=== PATIENT | male | born 1970 | race African-American/Black ===

== ENCOUNTER 2022-02-12 13:18 | Inpatient (IN) ==
[2022-02-12 13:56] LABS: ABS Lymphocytes 1.5 10^3/ul (1.0-4.8); ABS Monocytes 0.7 10^3/ul (0-0.8); ABS Neutrophils 9.5 10^3/ul (1.5-7.7); Eosinophil % 0.3 %; Hematocrit 42 % (42-52); Hemoglobin 13.1 g/dL (14.0-18.0); Lymphocyte % 12.5 %; Mean Corpuscular HGB Conc 31 g/dL (31-36); Mean Corpuscular Hemoglobin 25 pg (27-31); Mean Corpuscular Volume 81 fL (80-94); Mean Platelet Volume 8.8 fL (7.4-10.4); Platelet Count 216 10^3/uL (150-450); Red Blood Count 5.22 10^6 /uL (4.18-5.48); Red Cell Distribution Width 18 % (10-15); White Blood Count 11.7 10^3/uL (3.5-10.8)
[2022-02-12 14:06] LABS: INR 1.2 (0.86-1.15)
[2022-02-12 14:28] LABS: Albumin/Globulin Ratio 0.7 (1-3); Calcium 8.7 mg/dL (8.6-10.3); Globulin 4.4 g/dL (2-4); Potassium 4.4 mmol/L (3.5-5.0); Total Bilirubin 0.6 mg/dL (0.2-1.0); Total Protein 7.4 g/dL (6.4-8.9); eGFR CKD-EPI 55.6 (>60)
[2022-02-12] MEDS ORDERED: Morphine 4 MG/ML VIAL (1 ml) IV ONE (14:59)
[2022-02-12] MEDS ORDERED: Lactated Ringers 1000 ml BAG 1,000 ML IV ONE (14:59)
[2022-02-12] MEDS ORDERED: Ondansetron 4 mg VIAL 2 MG/ML 2 ml VIAL IV ONE (14:59)
[2022-02-12 15:24] LABS: High Sensitivity Troponin 1 Hr 3 pg/mL (<20)
[2022-02-12] MEDS ORDERED: Iohexol 350 (CONTRAST) 500 ML MDV IV ONE (15:32)
[2022-02-12] MEDS ORDERED: Lidocaine 1% VIAL 10 MG/ML VIAL INJ ONE ×2 (17:50→17:58)
[2022-02-12] MEDS ORDERED: Midazolam 2 mg/2 ml VIAL 1 mg/ml 2 ml VIAL (2 mg) IV SLOW PU ONE (18:08)
[2022-02-12] MEDS ORDERED: Lidocaine 1% MPF 5 ML VIAL ONE ×2 (18:13→19:00)
[2022-02-12 19:26] LABS: Hepatitis B Surface Antigen Positive (Nonreactive)
[2022-02-12 19:31] LABS: Hepatitis A Ab IgM Negative (Negative)
[2022-02-12 19:32] LABS: Hepatitis B Core IgM Nonreactive (Nonreactive)
[2022-02-12 19:43] LABS: Hepatitis C Antibody Negative (Negative)
[2022-02-12 21:29] LABS: Body Fluid Appearance Cloudy; Body Fluid Mono 7 %; Body Fluid Source Pleural Fluid; Body Fluid Total Cells Counted 200
[2022-02-12 21:35] LABS: Body Fluid WBC 10174 /mcL
[2022-02-12] MEDS ORDERED: cefTRIAXone 1 gm/50 mL D5W 1 GM/50 ML BAG IV SCH (22:00)
[2022-02-12] MEDS: oxyCODONE/Acetamin 5/325 mg TAB PO PRN (22:05)
[2022-02-12] MEDS ORDERED: Azithromycin 500 mg/250 ml NS 500 MG/250 ML BAG IVPB SCH (22:30)
[2022-02-12 22:57] LABS: Urine Appearance Clear; Urine Bacteria Absent (Absent); Urine Bilirubin Negative (Negative); Urine Blood Negative (Negative); Urine Color Yellow; Urine Glucose Negative (Negative); Urine Ketones Negative (Negative); Urine Nitrite Negative (Negative); Urine Protein 1+(30 mg/dL) (Negative); Urine Red Blood Cell Absent (Absent); Urine Urobilinogen Negative (Negative); Urine White Blood Cell Absent (Absent)
[2022-02-12 22:58] LABS: Urine Specific Gravity > 1.060 (1.002-1.030)
[2022-02-13] MEDS: NS 0.9% 1000 ml BAG 1,000 ML IV SCH ×2 (06:10→22:42)
[2022-02-13 07:07] LABS: ABS Monocytes 0.9 10^3/ul (0-0.8); ABS Neutrophils 7.8 10^3/ul (1.5-7.7); Eosinophil % 0.4 %; Hematocrit 38 % (42-52); Hemoglobin 12.1 g/dL (14.0-18.0); Lymphocyte % 10.7 %; Mean Corpuscular HGB Conc 32 g/dL (31-36); Mean Corpuscular Hemoglobin 26 pg (27-31); Mean Corpuscular Volume 80 fL (80-94); Mean Platelet Volume 9.3 fL (7.4-10.4); Platelet Count 182 10^3/uL (150-450); Red Cell Distribution Width 18 % (10-15); White Blood Count 9.8 10^3/uL (3.5-10.8)
[2022-02-13 07:17] LABS: C Reactive Protein 294.87 mg/L (<8.01); HDL Cholesterol 24.1 mg/dL; Potassium 4.6 mmol/L (3.5-5.0); eGFR CKD-EPI 63.6 (>60)
[2022-02-13] MEDS: BICTEGRAV EMTRICIT TENOFOV ALA PO SCH (09:56)
[2022-02-13] MEDS: oxyCODONE/Acetamin 5/325 mg TAB PO PRN (12:20)
[2022-02-13] MEDS ORDERED: Lorazepam PYXIS KEY PRN (13:29)
[2022-02-13] MEDS ORDERED: LORazepam 2 mg VIAL 1 ml IV PUSH ONE (13:30)
[2022-02-13] MEDS ORDERED: Vancomycin per Pharmacy 1 EA NOTE FOLLOW UP SCH (15:00)
[2022-02-13] MEDS ORDERED: Vancomycin 1,250 MG in NS 0.9% 250 ml 250 ML IVPB ONE (15:00)
[2022-02-13 18:40] LABS: Urine Chloride Concentration 52 mmol/L; Urine Sodium Concentration 40 mmol/L
[2022-02-13] MEDS ORDERED: cefTRIAXone 1 gm/50 mL D5W 1 GM/50 ML BAG IV SCH (22:00)
[2022-02-13] MEDS: Azithromycin 500 mg/250 ml NS 500 MG/250 ML BAG IVPB SCH (22:41)
[2022-02-14] MEDS: Vancomycin 750 MG in NS 0.9% 250 ML IVPB SCH ×2 (03:13→15:01)
[2022-02-14 08:57] LABS: Magnesium 1.9 mg/dL (1.9-2.7); Potassium 4.3 mmol/L (3.5-5.0); eGFR CKD-EPI 78.7 (>60)
[2022-02-14] MEDS: NS 0.9% 1000 ml BAG 1,000 ML IV SCH ×2 (09:05→21:32)
[2022-02-14] MEDS: BICTEGRAV EMTRICIT TENOFOV ALA PO SCH (09:26)
[2022-02-14 11:40] LABS: Hepatitis B Surface Ab Not Immune (Immune)
[2022-02-14] MEDS: oxyCODONE/Acetamin 5/325 mg TAB PO PRN (21:30)
[2022-02-14] MEDS: cefTRIAXone 2 gm/50 mL D5W 2 GM/50 ML BAG IV SCH (21:41)
[2022-02-14] MEDS: Azithromycin 500 mg/250 ml NS 500 MG/250 ML BAG IVPB SCH (22:20)
[2022-02-15] MEDS: Vancomycin 750 MG in NS 0.9% 250 ML IVPB SCH (03:00)
[2022-02-15 06:23] LABS: ABS Eosinophils 0.2 10^3/ul (0-0.6); ABS Monocytes 0.7 10^3/ul (0-0.8); ABS Neutrophils 2.5 10^3/ul (1.5-7.7); Eosinophil % 4.6 %; Hematocrit 37 % (42-52); Hemoglobin 11.5 g/dL (14.0-18.0); Lymphocyte % 22.3 %; Mean Corpuscular HGB Conc 31 g/dL (31-36); Mean Corpuscular Hemoglobin 25 pg (27-31); Mean Corpuscular Volume 79 fL (80-94); Mean Platelet Volume 8.6 fL (7.4-10.4); Platelet Count 259 10^3/uL (150-450); Red Blood Count 4.66 10^6 /uL (4.18-5.48); Red Cell Distribution Width 18 % (10-15); White Blood Count 4.4 10^3/uL (3.5-10.8)
[2022-02-15 06:53] LABS: Calcium 8.1 mg/dL (8.6-10.3); Magnesium 1.9 mg/dL (1.9-2.7); Potassium 4.4 mmol/L (3.5-5.0); eGFR CKD-EPI 83.1 (>60)
[2022-02-15] MEDS ORDERED: Magnesium Sulfate IV 1GM/100ML 1 GM/100 ML BAG IV ONE (07:02)
[2022-02-15] MEDS: BICTEGRAV EMTRICIT TENOFOV ALA PO SCH (10:01)
[2022-02-15 10:53] LABS: Lactate Dehydrogenase, BF 476 U/L
[2022-02-15 12:48] LABS: Glucose, BF 39 mg/dL
[2022-02-15 12:54] LABS: Fluid Type, Protein, Total PLEURAL; Total Protein, BF 4.5 g/dL
[2022-02-15 14:15] LABS: Fluid Type: PLEURAL; Triglycerides (BF) 1721 mg/dL
[2022-02-15] MEDS ORDERED: Vancomycin Trough Check NOTE FOLLOW UP ONE (14:30)
[2022-02-15] MEDS: cefTRIAXone 2 gm/50 mL D5W 2 GM/50 ML BAG IV SCH (22:00)
[2022-02-15] MEDS: Azithromycin 500 mg/250 ml NS 500 MG/250 ML BAG IVPB SCH (22:42)
[2022-02-16] MEDS: NS 0.9% 1000 ml BAG 1,000 ML IV SCH ×3 (00:53→22:56)
[2022-02-16 06:42] LABS: ABS Eosinophils 0.2 10^3/ul (0-0.6); ABS Lymphocytes 1.1 10^3/ul (1.0-4.8); ABS Monocytes 0.7 10^3/ul (0-0.8); Eosinophil % 4.7 %; Hematocrit 36 % (42-52); Hemoglobin 11.6 g/dL (14.0-18.0); Lymphocyte % 26.7 %; Mean Corpuscular HGB Conc 32 g/dL (31-36); Mean Corpuscular Hemoglobin 26 pg (27-31); Mean Corpuscular Volume 79 fL (80-94); Nucleated Red Blood Cells % 0.1; Platelet Count 296 10^3/uL (150-450); Red Blood Count 4.53 10^6 /uL (4.18-5.48); Red Cell Distribution Width 17 % (10-15)
[2022-02-16 06:59] LABS: Calcium 8.2 mg/dL (8.6-10.3); Magnesium 1.8 mg/dL (1.9-2.7); Potassium 4.3 mmol/L (3.5-5.0); eGFR CKD-EPI 96.9 (>60)
[2022-02-16] MEDS ORDERED: Magnesium Sulfate 2 gm BAG 2 GM/50 ML BAG IVPB ONE (07:03)
[2022-02-16] MEDS: BICTEGRAV EMTRICIT TENOFOV ALA PO SCH (07:59)
[2022-02-16] MEDS: cefTRIAXone 2 GM ADDV.VIAL 2 GM in NS 0.9% 100 ml BAG 100 ML IVPB SCH (21:10)
[2022-02-17] MEDS: oxyCODONE/Acetamin 5/325 mg TAB PO PRN (04:47)
[2022-02-17 05:46] LABS: Hematocrit 36 % (42-52); Hemoglobin 11.3 g/dL (14.0-18.0); Mean Corpuscular HGB Conc 32 g/dL (31-36); Mean Corpuscular Hemoglobin 25 pg (27-31); Mean Corpuscular Volume 78 fL (80-94); Mean Platelet Volume 8.3 fL (7.4-10.4); Platelet Count 350 10^3/uL (150-450); Red Blood Count 4.55 10^6 /uL (4.18-5.48); Red Cell Distribution Width 18 % (10-15); White Blood Count 5.2 10^3/uL (3.5-10.8)
[2022-02-17] MEDS ORDERED: Buffered Lidocaine 1% SYRIN 1 ml INTRADERM ONE (06:00)
[2022-02-17] MEDS ORDERED: Lactated Ringers 1000 ml BAG 1,000 ML IV SCH (06:00)
[2022-02-17 06:06] LABS: Calcium 8.3 mg/dL (8.6-10.3); Magnesium 1.9 mg/dL (1.9-2.7); Potassium 4.4 mmol/L (3.5-5.0)
[2022-02-17] MEDS ORDERED: Magnesium Sulfate IV 1GM/100ML 1 GM/100 ML BAG IV ONE (06:28)
[2022-02-17] MEDS: NS 0.9% 1000 ml BAG 1,000 ML IV SCH (11:03)
[2022-02-17] MEDS: BICTEGRAV EMTRICIT TENOFOV ALA PO SCH (11:03)
[2022-02-17] MEDS ORDERED: Propofol 10 MG/ML 20 ML BTL ONE ×2 (11:24→14:14)
[2022-02-17] MEDS ORDERED: fentaNYL 100 mcg/2 ml 50 MCG/ML VIAL ONE (11:25)
[2022-02-17] MEDS ORDERED: Midazolam 2 mg/2 ml VIAL 1 mg/ml 2 ml VIAL (2 mg) ONE (11:25)
[2022-02-17] MEDS ORDERED: Rocuronium 50 mg VIAL 10 mg/ml 5 ml VIAL (50 mg) ONE (11:28)
[2022-02-17] MEDS ORDERED: Lidocaine 1% 50 ML MDV VIAL ONE (12:39)
[2022-02-17] MEDS ORDERED: Lidocaine 2% JELLY 20 ML (for OR use) ONE (12:39)
[2022-02-17] MEDS ORDERED: Benzocaine/Butamben/Tetracain (CETACAINE - SINGLE USE) 5 gm TOPICAL ONE (12:44)
[2022-02-17] MEDS ORDERED: Dexamethasone IV 4 MG/ML VIAL 1 ml VIAL ONE (13:39)
[2022-02-17] MEDS ORDERED: Ondansetron 4 mg VIAL 2 MG/ML 2 ml VIAL ONE (13:39)
[2022-02-17] MEDS ORDERED: Prochlorperazine 5 mg/ml 2 ml VIAL (10 mg) IV PRN (14:06)
[2022-02-17] MEDS ORDERED: fentaNYL 100 mcg/2 ml 50 MCG/ML VIAL IV PRN (14:06)
[2022-02-17] MEDS ORDERED: Naloxone 0.4 mg VIAL 0.4 mg/ml 1 ml VIAL IV PRN (14:06)
[2022-02-17] MEDS ORDERED: Ondansetron 4 mg VIAL 2 MG/ML 2 ml VIAL IV PRN (14:06)
[2022-02-17] MEDS: cefTRIAXone 2 GM ADDV.VIAL 2 GM in NS 0.9% 100 ml BAG 100 ML IVPB SCH (20:16)
[2022-02-18 05:42] LABS: ABS Lymphocytes 1.1 10^3/ul (1.0-4.8); ABS Monocytes 0.8 10^3/ul (0-0.8); ABS Neutrophils 7.1 10^3/ul (1.5-7.7); Eosinophil % 0.1 %; Hematocrit 35 % (42-52); Hemoglobin 11.2 g/dL (14.0-18.0); Mean Corpuscular HGB Conc 32 g/dL (31-36); Mean Corpuscular Hemoglobin 25 pg (27-31); Mean Corpuscular Volume 80 fL (80-94); Mean Platelet Volume 8.2 fL (7.4-10.4); Platelet Count 398 10^3/uL (150-450); Red Blood Count 4.44 10^6 /uL (4.18-5.48); Red Cell Distribution Width 17 % (10-15)
[2022-02-18 06:08] LABS: Calcium 8.2 mg/dL (8.6-10.3); Magnesium 2.2 mg/dL (1.9-2.7); eGFR CKD-EPI 64.1 (>60)
[2022-02-18 06:11] LABS: Potassium 5.3 mmol/L (3.5-5.0)
[2022-02-18 09:20] LABS: Hepatitis Be Antigen Negative (Negative)
[2022-02-18] MEDS: NS 0.9% 1000 ml BAG 1,000 ML IV SCH (09:23)
[2022-02-18 10:12] LABS: % CD3 50 % (58-86); % CD4 6 % (32-64); % CD8 42 % (11-40); 4/8 H/S Ratio 0.2 (>=0.9); Absolute CD45 Count 1.19 thou/mcL (0.82-2.84); CD3 589 cells/mcL (550-2202); CD4 76 cells/mcL (365-1437); CD8 499 cells/mcL (117-846)
[2022-02-18 12:20] LABS: TB1 Ag minus Nil Result -0.01 IU/mL; TB2 Ag minus Nil Result -0.01 IU/mL
[2022-02-18] MEDS: Sulfamethox/Trimethoprim DS TAB 800/160 mg PO SCH (12:33)
[2022-02-18] MEDS: BICTEGRAV EMTRICIT TENOFOV ALA PO SCH (12:47)
[2022-02-18 13:15] LABS: QuantiferonTb Gold Plus Result Negative (Negative)
[2022-02-18] MEDS: cefTRIAXone 2 GM ADDV.VIAL 2 GM in NS 0.9% 100 ml BAG 100 ML IVPB SCH (21:38)
[2022-02-19] MEDS: NS 0.9% 1000 ml BAG 1,000 ML IV SCH (02:17)
[2022-02-19 05:39] LABS: Hematocrit 33 % (42-52); Hemoglobin 10.2 g/dL (14.0-18.0); Mean Corpuscular HGB Conc 32 g/dL (31-36); Mean Corpuscular Hemoglobin 25 pg (27-31); Mean Corpuscular Volume 79 fL (80-94); Mean Platelet Volume 7.9 fL (7.4-10.4); Platelet Count 376 10^3/uL (150-450); Red Blood Count 4.12 10^6 /uL (4.18-5.48); Red Cell Distribution Width 18 % (10-15); White Blood Count 5.7 10^3/uL (3.5-10.8)
[2022-02-19 06:30] LABS: Calcium 7.8 mg/dL (8.6-10.3); Magnesium 1.8 mg/dL (1.9-2.7); Potassium 4.4 mmol/L (3.5-5.0); eGFR CKD-EPI 77.1 (>60)
[2022-02-19] MEDS ORDERED: Magnesium Sulfate 2 gm BAG 2 GM/50 ML BAG IVPB ONE (06:57)
[2022-02-19] MEDS: Sulfamethox/Trimethoprim DS TAB 800/160 mg PO SCH (10:00)
[2022-02-19] MEDS: BICTEGRAV EMTRICIT TENOFOV ALA PO SCH (10:00)
[2022-02-19] MEDS: cefTRIAXone 2 GM ADDV.VIAL 2 GM in NS 0.9% 100 ml BAG 100 ML IVPB SCH (21:17)
[2022-02-20 06:26] LABS: ABS Eosinophils 0.2 10^3/ul (0-0.6); ABS Lymphocytes 1.3 10^3/ul (1.0-4.8); ABS Monocytes 0.7 10^3/ul (0-0.8); ABS Neutrophils 4.3 10^3/ul (1.5-7.7); Eosinophil % 3.8 %; Hematocrit 35 % (42-52); Lymphocyte % 19.8 %; Mean Corpuscular HGB Conc 32 g/dL (31-36); Mean Corpuscular Hemoglobin 25 pg (27-31); Mean Corpuscular Volume 79 fL (80-94); Mean Platelet Volume 7.8 fL (7.4-10.4); Nucleated Red Blood Cells % 0.1; Platelet Count 435 10^3/uL (150-450); Red Blood Count 4.38 10^6 /uL (4.18-5.48); Red Cell Distribution Width 17 % (10-15); White Blood Count 6.6 10^3/uL (3.5-10.8)
[2022-02-20 06:52] LABS: Calcium 8.3 mg/dL (8.6-10.3); Potassium 4.4 mmol/L (3.5-5.0); eGFR CKD-EPI 75.5 (>60)
[2022-02-20] MEDS ORDERED: Sulfamethox/Trimethoprim SS TAB 400/80 mg PO SCH (09:00)
[2022-02-20] MEDS: BICTEGRAV EMTRICIT TENOFOV ALA PO SCH ×2 (09:02→09:26)
[2022-02-20 12:35] LABS: Rapid COVID-19 Molecular Undetected (Undetected)
[2022-02-20 15:32] VITALS: BP 135/87
== END 2022-02-20 19:35 | disposition short-term general hospital (02) | DRG 890 ==
LOC: ED 13:18 → SUATTDRO 19:07 → EDHOLD 19:07 → MED 02-13 17:46 → UNDODISIN 02-20 17:40
PROVIDERS: ADMIT Internal Medicine; ATTEND Internal Medicine

== ENCOUNTER 2024-07-11 08:28 | Inpatient (IN) ==
[2024-07-11 09:06] LABS: ABS Eosinophils 0.1 10^3/uL (0.0-0.5); ABS Lymphocytes 0.9 10^3/uL (1.0-4.8); ABS Neutrophils 15.3 10^3/uL (1.5-7.6); ABS Nucleated RBC 0.01 10^3/ul; Eosinophil % 0.8 %; Hematocrit 38.4 % (38-53); Hemoglobin 12.5 g/dL (13.2-16.3); Lymphocyte % 5.1 %; Mean Corpuscular Hemoglobin 27.1 pg (27-33); Mean Corpuscular Hgb Conc 32.6 g/dL (31-36); Mean Platelet Volume 8.7 fL (7.5-11.2); Nucleated Red Blood Cells % 0.1 %/100WBC (0.0-0.8); Platelet Count 183 10^3/uL (150-450); Red Blood Count 4.62 10^6/uL (4.06-5.63); Red Cell Distribution Width 17.6 % (12-17); White Blood Count 17.3 10^3/uL (3.6-10.2)
[2024-07-11 09:22] LABS: Activated Partial Thrombo Time 27.2 seconds (26.0-38.0); INR 1.13 (0.85-1.14)
[2024-07-11 09:52] LABS: Albumin 3.2 g/dL (3.2-5.2); Albumin/Globulin Ratio 0.9 (1-3); C Reactive Protein 272.96 mg/L (<8.01); Calcium 9.1 mg/dL (8.6-10.3); Creatinine, Serum 1.18 mg/dL (0.67-1.17); Globulin 3.5 g/dL (2-4); Potassium 4.6 mmol/L (3.5-5.0); Total Bilirubin 0.6 mg/dL (0.2-1.0); Total Protein 6.7 g/dL (6.4-8.9); eGFR CKD-EPI 73.3 (>60)
[2024-07-11] MEDS: Albuterol/Ipratropium NEB.SOL (2.5/0.5 MG) 3 ML NEB.SOLN INH ONE (10:28)
[2024-07-11] MEDS: cefTRIAXone 1 gm/50 mL D5W 1 GM/50 ML BAG IV ONE (10:31)
[2024-07-11] MEDS: Azithromycin 500 mg/250 ml NS 500 MG/250 ML BAG IVPB ONE (10:50)
[2024-07-11] MEDS: Lactated Ringers SEPSIS* BAG 1,910 ML IV ONE (10:51)
[2024-07-11 11:03] LABS: High Sens Troponin Baseline 14 pg/mL (<20)
[2024-07-11 11:57] LABS: High Sensitivity Troponin 1 Hr 20 pg/mL (<20)
[2024-07-11] MEDS ORDERED: Sulfur Hexaflouride MICROSPHR 25 MG VIAL IV PRN (12:41)
[2024-07-11] MEDS ORDERED: Vancomycin per Pharmacy 1 EA NOTE FOLLOW UP SCH (13:00)
[2024-07-11] MEDS ORDERED: Zosyn per Pharmacy NOTE FOLLOW UP SCH (13:00)
[2024-07-11] MEDS: Iohexol 350 (CONTRAST) 500 ML MDV IV ONE (13:04)
[2024-07-11] MEDS: Vancomycin 1,250 MG in NS 0.9% 250 ml 250 ML IVPB ONE (14:10)
[2024-07-11] MEDS: Lactated Ringers 1000 ml BAG 1,000 ML IV ONE ×2 (15:31→18:42)
[2024-07-11 16:17] LABS: Urine Appearance Clear; Urine Bacteria Absent /HPF (Absent); Urine Bilirubin Negative (Negative); Urine Blood Negative (Negative); Urine Color Yellow; Urine Glucose Negative (Negative); Urine Ketones Negative (Negative); Urine Nitrite Negative (Negative); Urine Protein 2+ (>=100 mg/dL) (Negative); Urine Red Blood Cell 2+(6-10/hpf) /HPF (0-Trace); Urine Specific Gravity >1.050 (1.002-1.030); Urine Sperm Present /HPF (Absent); Urine Squamous Epithelial Cell Present /HPF (Absent); Urine Urobilinogen 2+ (Negative); Urine White Blood Cell Trace(0-5/hpf) /HPF (0-Trace); Urine pH 8.5 (5.0-8.0)
[2024-07-11] MEDS: Enoxaparin 40 MG/0.4 ML SYR SUBCUT SCH (16:41)
[2024-07-11] MEDS: Piperacillin/Tazobac 3.375 BAG 3.375 GM/100 ML BAG IV ONE (16:50)
[2024-07-11] MEDS: Morphine 2 MG/ML SYRINGE IV ONE (20:10)
[2024-07-11 20:27] LABS: PCO2 Arterial 39 mmHg (35-45); PO2 Arterial 103 mmHg (80-100)
[2024-07-11] MEDS: ZOSYN 3.375 GM Q8H per EXTENDED INFUSION IV SCH (23:50)
[2024-07-12] MEDS: Morphine 2 MG/ML SYRINGE IV PRN (02:17)
[2024-07-12] MEDS: Vancomycin 1000 MG in NS 0.9% 250 ML IVPB SCH (02:29)
[2024-07-12] MEDS: Iohexol 350 (CONTRAST) 500 ML MDV IV ONE (02:59)
[2024-07-12 04:47] LABS: Venous Bicarbonate HCO3 23.8 mmol/L (24-28)
[2024-07-12 04:54] LABS: Hematocrit 32.5 % (38-53); Hemoglobin 10.4 g/dL (13.2-16.3); Mean Corpuscular Hemoglobin 26.6 pg (27-33); Mean Corpuscular Hgb Conc 31.9 g/dL (31-36); Mean Corpuscular Volume 83.4 fL (80-97); Mean Platelet Volume 8.8 fL (7.5-11.2); Platelet Count 162 10^3/uL (150-450); Red Blood Count 3.89 10^6/uL (4.06-5.63); Red Cell Distribution Width 17.2 % (12-17); White Blood Count 15.9 10^3/uL (3.6-10.2)
[2024-07-12 05:55] LABS: ABS Eosinophils 0.3 10^3/uL (0.0-0.5); ABS Lymphocytes 0.8 10^3/uL (1.0-4.8); ABS Monocytes 1.5 10^3/uL (0.0-1.1); ABS Neutrophils 13.3 10^3/uL (1.5-7.6); ABS Nucleated RBC 0.01 10^3/ul; Eosinophil % 1.6 %; Lymphocyte % 5.1 %; Nucleated Red Blood Cells % 0.1 %/100WBC (0.0-0.8)
[2024-07-12] MEDS: Clindamycin 900 MG/D5W BAG 900 MG/50 ML BAG IVPB SCH (06:02)
[2024-07-12 06:06] LABS: Potassium 5.1 mmol/L (3.5-5.0)
[2024-07-12 06:07] LABS: Creatinine, Serum 1.34 mg/dL (0.67-1.17)
[2024-07-12 06:08] LABS: Albumin 2.5 g/dL (3.2-5.2); Albumin/Globulin Ratio 0.9 (1-3); Globulin 2.7 g/dL (2-4); Magnesium 1.4 mg/dL (1.9-2.7); Total Bilirubin 0.9 mg/dL (0.2-1.0); Total Protein 5.2 g/dL (6.4-8.9)
[2024-07-12] MEDS: Magnesium Sulf 4 GM/100 ML IV 4,000 MG/100 ML BAG IVPB ONE (07:00)
[2024-07-12] MEDS ORDERED: Magnesium Sulf 4 GM/100 ML IV 4,000 MG/100 ML BAG IVPB ONE (08:04)
[2024-07-12] MEDS: Lactated Ringers 1000 ml BAG 1,000 ML IV ONE (10:14)
[2024-07-12] MEDS: PTO: Bictegravir/Emtricit/Tenofov 1 TABLET PO SCH (17:04)
[2024-07-12 17:22] LABS: Calcium 8.2 mg/dL (8.6-10.3); Creatinine, Serum 1.32 mg/dL (0.67-1.17); Magnesium 2.3 mg/dL (1.9-2.7); Potassium 4.9 mmol/L (3.5-5.0); eGFR CKD-EPI 64.1 (>60)
[2024-07-13 04:31] LABS: Venous Bicarbonate HCO3 23.1 mmol/L (24-28)
[2024-07-13 04:51] LABS: Hematocrit 32.6 % (38-53); Hemoglobin 10.7 g/dL (13.2-16.3); Mean Corpuscular Hemoglobin 26.8 pg (27-33); Mean Corpuscular Hgb Conc 32.9 g/dL (31-36); Mean Corpuscular Volume 81.4 fL (80-97); Mean Platelet Volume 8.9 fL (7.5-11.2); Platelet Count 170 10^3/uL (150-450); Red Cell Distribution Width 17.6 % (12-17); White Blood Count 15.5 10^3/uL (3.6-10.2)
[2024-07-13 05:10] LABS: Albumin 2.5 g/dL (3.2-5.2); Albumin/Globulin Ratio 0.9 (1-3); Creatinine, Serum 1.18 mg/dL (0.67-1.17); Globulin 2.9 g/dL (2-4); Magnesium 2.2 mg/dL (1.9-2.7); Potassium 4.4 mmol/L (3.5-5.0); Total Bilirubin 1.1 mg/dL (0.2-1.0); Total Protein 5.4 g/dL (6.4-8.9); eGFR CKD-EPI 73.3 (>60)
[2024-07-13 06:53] LABS: ABS Eosinophils 0.4 10^3/uL (0.0-0.5); ABS Monocytes 1.3 10^3/uL (0.0-1.1); ABS Neutrophils 12.8 10^3/uL (1.5-7.6); ABS Nucleated RBC 0.03 10^3/ul; Eosinophil % 2.9 %; Lymphocyte % 6.6 %; Nucleated Red Blood Cells % 0.2 %/100WBC (0.0-0.8); RBC Morphology Normal (Normal); Toxic Granulation 3+
[2024-07-13] MEDS ORDERED: Flumazenil 0.5 mg/5 ml 0.1 MG/ML 5 ml VIAL ONE (07:28)
[2024-07-13] MEDS ORDERED: Midazolam 5 mg/5 ml VIAL 1 mg/ml 5 ml VIAL (5 mg) ONE (07:28)
[2024-07-13] MEDS ORDERED: Naloxone 0.4 mg VIAL 0.4 mg/ml 1 ml VIAL ONE (07:28)
[2024-07-13] MEDS ORDERED: fentaNYL 100 mcg/2 ml 50 MCG/ML VIAL ONE (07:28)
[2024-07-13] MEDS ORDERED: Flumazenil 0.5 mg/5 ml 0.1 MG/ML 5 ml VIAL IV PRN (09:14)
[2024-07-13] MEDS ORDERED: Naloxone 0.4 mg VIAL 0.4 mg/ml 1 ml VIAL IV PUSH PRN (09:14)
[2024-07-13] MEDS ORDERED: Midazolam 10 mg/10 ml VIAL 1 mg/ml 10 ml VIAL (10 mg) ONE ×2 (09:30)
[2024-07-13] MEDS ORDERED: Etomidate 40 mg/20 ml (2 MG/ML) 20 ml VIAL (40 mg) ONE ×2 (09:30)
[2024-07-13] MEDS ORDERED: Rocuronium 50 mg VIAL 10 mg/ml 5 ml VIAL (50 mg) ONE ×2 (09:30)
[2024-07-13] MEDS: Propofol 10 mg/ml 100 ML BTL 1,000 MG/100 ML BTL ONE (09:40)
[2024-07-13] MEDS: fentaNYL 100 mcg/2 ml 50 MCG/ML VIAL IV SLOW PU ONE (10:06)
[2024-07-13] MEDS: Midazolam 10 mg/10 ml VIAL 1 mg/ml 10 ml VIAL (10 mg) IV SLOW PU ONE (10:06)
[2024-07-13] MEDS: fentaNYL INFUSION 50 mcg/mL VL 2,500 MCG/50 ML VIAL IV SCH ×2 (10:23→10:42)
[2024-07-13] MEDS: Famotidine IV 10 MG/ML 2 ml VIAL (20 mg) IV SLOW PU SCH (10:32)
[2024-07-13] MEDS: Chlorhexidine MOUTHWASH 0.12% 15 ML UDC TOPICAL SCH (10:32)
[2024-07-13] MEDS: Rocuronium 50 mg VIAL 10 mg/ml 5 ml VIAL (50 mg) ONE (10:33)
[2024-07-13] MEDS: Phenylephrine 40 mcg/mL 10mL (400mcg) SYRINGE ONE (10:33)
[2024-07-13] MEDS: Midazolam 10 mg/10 ml VIAL 1 mg/ml 10 ml VIAL (10 mg) ONE (10:35)
[2024-07-13] MEDS: Propofol 10 mg/ml 100 ML BTL 1,000 MG/100 ML BTL IV SCH (10:37)
[2024-07-13] MEDS: Dextrose 50% Syringe 50 ml 25 GM/50 ML SYRINGE IV PUSH PRN (11:45)
[2024-07-13 12:44] LABS: Venous Bicarbonate HCO3 21.4 mmol/L (24-28)
[2024-07-13] MEDS: Lactated Ringers 1000 ml BAG 1,000 ML IV ONE ×2 (13:25→18:27)
[2024-07-13] MEDS: Vancomycin Trough Check NOTE FOLLOW UP ONE (13:34)
[2024-07-13] MEDS: fentaNYL 100 mcg/2 ml 50 MCG/ML VIAL IV SLOW PU PRN (14:13)
[2024-07-13 14:35] LABS: Phosphorus 2.8 mg/dL (2.5-5.0)
[2024-07-13] MEDS: Vancomycin 750 MG in NS 0.9% 250 ML IVPB SCH (15:30)
[2024-07-13 15:34] LABS: Venous Bicarbonate HCO3 22.4 mmol/L (24-28)
[2024-07-13] MEDS ORDERED: Dextrose 50% Syringe 50 ml 25 GM/50 ML SYRINGE IV PUSH PRN (16:48)
[2024-07-13] MEDS: Acetaminophen IV 1 GM/100ML 1,000 MG/100 ML BAG IV PRN (17:57)
[2024-07-13 18:43] LABS: HIV-1 RNA (PCR) Undetected copies/mL (Undetected)
[2024-07-13 19:06] LABS: % CD3 42 % (58-86); % CD4 8 % (32-64); % CD8 34 % (11-40); 4/8 H/S Ratio 0.2 (>=0.9); Absolute CD45 Count 0.69 thou/mcL (0.82-2.84); CD3 295 cells/mcL (550-2202); CD4 53 cells/mcL (365-1437); CD8 235 cells/mcL (117-846)
[2024-07-13 23:37] LABS: Aspergillus (Galactomannan) Ag 0.676 index (<0.5)
[2024-07-14 05:48] LABS: Hematocrit 30.8 % (38-53); Hemoglobin 9.8 g/dL (13.2-16.3); Mean Corpuscular Hemoglobin 26.4 pg (27-33); Mean Corpuscular Volume 82.5 fL (80-97); Mean Platelet Volume 8.6 fL (7.5-11.2); Platelet Count 167 10^3/uL (150-450); Red Blood Count 3.74 10^6/uL (4.06-5.63); Red Cell Distribution Width 18.3 % (12-17); White Blood Count 12.7 10^3/uL (3.6-10.2)
[2024-07-14 06:20] LABS: Albumin 2.2 g/dL (3.2-5.2); Albumin/Globulin Ratio 0.8 (1-3); Calcium 8.2 mg/dL (8.6-10.3); Creatinine, Serum 1.69 mg/dL (0.67-1.17); Globulin 2.8 g/dL (2-4); Magnesium 2.1 mg/dL (1.9-2.7); Potassium 4.3 mmol/L (3.5-5.0); Total Bilirubin 1.4 mg/dL (0.2-1.0); eGFR CKD-EPI 47.6 (>60)
[2024-07-14 07:26] LABS: ABS Eosinophils 0.5 10^3/uL (0.0-0.5); ABS Lymphocytes 0.8 10^3/uL (1.0-4.8); ABS Monocytes 1.1 10^3/uL (0.0-1.1); ABS Neutrophils 10.3 10^3/uL (1.5-7.6); ABS Nucleated RBC 0.01 10^3/ul; Eosinophil % 3.7 %; Lymphocyte % 6.1 %; Nucleated Red Blood Cells % 0.1 %/100WBC (0.0-0.8)
[2024-07-14] MEDS: Vancomycin Trough Check NOTE FOLLOW UP ONE (13:45)
[2024-07-14] MEDS: Lactated Ringers 1000 ml BAG 500 ML IV ONE (14:08)
[2024-07-14] MEDS: Norepinephrine 4 MG/250mL D5W 4,000 MCG/250 ML BAG IV ONE (15:12)
[2024-07-14] MEDS: Norepinephrine 4 MG/250mL D5W 4,000 MCG/250 ML BAG IV SCH (15:12)
[2024-07-14] MEDS: cefTRIAXone 1 gm/50 mL D5W 1 GM/50 ML BAG IV SCH (15:45)
[2024-07-15 05:29] LABS: Hematocrit 30.4 % (38-53); Hemoglobin 9.9 g/dL (13.2-16.3); Mean Corpuscular Hemoglobin 26.9 pg (27-33); Mean Corpuscular Hgb Conc 32.5 g/dL (31-36); Mean Corpuscular Volume 82.7 fL (80-97); Mean Platelet Volume 8.5 fL (7.5-11.2); Platelet Count 178 10^3/uL (150-450); Red Blood Count 3.67 10^6/uL (4.06-5.63); Red Cell Distribution Width 18.2 % (12-17); White Blood Count 15.7 10^3/uL (3.6-10.2)
[2024-07-15] MEDS: Vancomycin Random Level NOTE FOLLOW UP ONE (06:23)
[2024-07-15 06:32] LABS: Creatinine, Serum 1.78 mg/dL (0.67-1.17); Magnesium 2.3 mg/dL (1.9-2.7); Potassium 4.3 mmol/L (3.5-5.0); Vancomycin Random 12.6 mcg/mL; eGFR CKD-EPI 44.8 (>60)
[2024-07-15] MEDS: Vancomycin 1000 MG in NS 0.9% 250 ML IVPB ONE (11:25)
[2024-07-16] MEDS: Morphine 2 MG/ML SYRINGE IV ONE (00:37)
[2024-07-16 04:21] LABS: Hemoglobin 10.4 g/dL (13.2-16.3); Mean Corpuscular Hemoglobin 26.5 pg (27-33); Mean Corpuscular Hgb Conc 32.6 g/dL (31-36); Mean Corpuscular Volume 81.2 fL (80-97); Mean Platelet Volume 8.6 fL (7.5-11.2); Platelet Count 226 10^3/uL (150-450); Red Blood Count 3.94 10^6/uL (4.06-5.63); Red Cell Distribution Width 18.3 % (12-17); White Blood Count 20.3 10^3/uL (3.6-10.2)
[2024-07-16 04:57] LABS: Calcium 8.1 mg/dL (8.6-10.3); Creatinine, Serum 1.54 mg/dL (0.67-1.17); Potassium 4.2 mmol/L (3.5-5.0); Vancomycin Random 11.9 mcg/mL; eGFR CKD-EPI 53.3 (>60)
[2024-07-16] MEDS: Vancomycin Random Level NOTE FOLLOW UP ONE (05:22)
[2024-07-16] MEDS: OLANZapine 5 mg TAB *ODT PO ONE (09:07)
[2024-07-16] MEDS: Vancomycin 1,250 MG in NS 0.9% 250 ml 250 ML IVPB SCH (10:47)
[2024-07-16] MEDS: Sulfamethox/Trimethoprim DS TAB 800/160 mg PO SCH (10:48)
[2024-07-16] MEDS ORDERED: Benzocaine/Menthol LOZ PO PRN (10:59)
[2024-07-17] MEDS ORDERED: Ondansetron 4 mg VIAL 2 MG/ML 2 ml VIAL IV PRN (08:12)
[2024-07-17] MEDS: Ondansetron 4 mg VIAL 2 MG/ML 2 ml VIAL IV PRN (10:25)
[2024-07-17 12:26] LABS: Hematocrit 34.4 % (38-53); Hemoglobin 11.1 g/dL (13.2-16.3); Mean Corpuscular Hgb Conc 32.2 g/dL (31-36); Mean Corpuscular Volume 80.9 fL (80-97); Mean Platelet Volume 8.4 fL (7.5-11.2); Platelet Count 359 10^3/uL (150-450); Red Blood Count 4.25 10^6/uL (4.06-5.63); Red Cell Distribution Width 18.1 % (12-17); White Blood Count 24.3 10^3/uL (3.6-10.2)
[2024-07-17 13:01] LABS: Calcium 8.2 mg/dL (8.6-10.3); Creatinine, Serum 1.53 mg/dL (0.67-1.17); Magnesium 2.1 mg/dL (1.9-2.7); Potassium 4.2 mmol/L (3.5-5.0); Vancomycin Trough 9.5 mcg/mL; eGFR CKD-EPI 53.7 (>60)
[2024-07-17] MEDS: Vancomycin Trough Check NOTE FOLLOW UP ONE (13:22)
[2024-07-17] MEDS: Vancomycin 750 MG in NS 0.9% 250 ML IVPB SCH (15:09)
[2024-07-17] MEDS: Lactated Ringers 1000 ml BAG 1,000 ML IV ONE (19:47)
[2024-07-18 08:44] LABS: Hematocrit 34.6 % (38-53); Hemoglobin 11.5 g/dL (13.2-16.3); Mean Corpuscular Hemoglobin 26.6 pg (27-33); Mean Corpuscular Hgb Conc 33.1 g/dL (31-36); Mean Corpuscular Volume 80.4 fL (80-97); Mean Platelet Volume 8.3 fL (7.5-11.2); Platelet Count 394 10^3/uL (150-450); Red Blood Count 4.31 10^6/uL (4.06-5.63); Red Cell Distribution Width 18.2 % (12-17); White Blood Count 18.5 10^3/uL (3.6-10.2)
[2024-07-18 09:27] LABS: Albumin 2.7 g/dL (3.2-5.2); Albumin/Globulin Ratio 0.6 (1-3); Calcium 8.2 mg/dL (8.6-10.3); Creatinine, Serum 1.55 mg/dL (0.67-1.17); Globulin 4.3 g/dL (2-4); Potassium 4.5 mmol/L (3.5-5.0); eGFR CKD-EPI 52.9 (>60)
[2024-07-18 09:34] LABS: ABS Basophils 0.1 10^3/uL (0.0-0.1); ABS Eosinophils 0.3 10^3/uL (0.0-0.5); ABS Lymphocytes 1.6 10^3/uL (1.0-4.8); ABS Neutrophils 15.5 10^3/uL (1.5-7.6); ABS Nucleated RBC 0.01 10^3/ul; Eosinophil % 1.5 %; Lymphocyte % 8.5 %; Nucleated Red Blood Cells % 0.1 %/100WBC (0.0-0.8)
[2024-07-18] MEDS: Lactated Ringers 1000 ml BAG 1,000 ML IV SCH (16:41)
[2024-07-19 14:58] LABS: Calcium 7.8 mg/dL (8.6-10.3); Creatinine, Serum 1.65 mg/dL (0.67-1.17); Potassium 4.5 mmol/L (3.5-5.0); Vancomycin Trough 15.5 mcg/mL
[2024-07-19] MEDS: Vancomycin Trough Check NOTE FOLLOW UP ONE (15:08)
[2024-07-19 15:52] LABS: Hematocrit 29.6 % (38-53); Hemoglobin 9.6 g/dL (13.2-16.3); Mean Corpuscular Hgb Conc 32.5 g/dL (31-36); Mean Platelet Volume 8.3 fL (7.5-11.2); Platelet Count 430 10^3/uL (150-450); Red Cell Distribution Width 17.9 % (12-17); White Blood Count 13.5 10^3/uL (3.6-10.2)
[2024-07-19 16:25] LABS: ABS Basophils 0.1 10^3/uL (0.0-0.1); ABS Eosinophils 0.5 10^3/uL (0.0-0.5); ABS Lymphocytes 1.5 10^3/uL (1.0-4.8); ABS Monocytes 0.7 10^3/uL (0.0-1.1); ABS Neutrophils 10.7 10^3/uL (1.5-7.6); Eosinophil % 3.5 %; Lymphocyte % 11.5 %
[2024-07-20 07:24] LABS: Hematocrit 33.6 % (38-53); Hemoglobin 11.2 g/dL (13.2-16.3); Mean Corpuscular Hemoglobin 26.9 pg (27-33); Mean Corpuscular Hgb Conc 33.2 g/dL (31-36); Mean Corpuscular Volume 80.8 fL (80-97); Mean Platelet Volume 8.4 fL (7.5-11.2); Platelet Count 489 10^3/uL (150-450); Red Blood Count 4.16 10^6/uL (4.06-5.63); Red Cell Distribution Width 17.9 % (12-17); White Blood Count 15.8 10^3/uL (3.6-10.2)
[2024-07-20 07:46] LABS: Calcium 8.1 mg/dL (8.6-10.3); Creatinine, Serum 1.65 mg/dL (0.67-1.17); Magnesium 1.9 mg/dL (1.9-2.7)
[2024-07-20] MEDS: Magnesium Sulfate 2 gm BAG 2 GM/50 ML BAG IVPB ONE (08:33)
[2024-07-21 08:03] LABS: ABS Eosinophils 0.9 10^3/uL (0.0-0.5); ABS Lymphocytes 1.8 10^3/uL (1.0-4.8); ABS Monocytes 0.6 10^3/uL (0.0-1.1); ABS Neutrophils 7.7 10^3/uL (1.5-7.6); ABS Nucleated RBC 0.01 10^3/ul; Eosinophil % 8.2 %; Hemoglobin 10.2 g/dL (13.2-16.3); Lymphocyte % 16.2 %; Mean Corpuscular Hemoglobin 26.7 pg (27-33); Mean Corpuscular Hgb Conc 32.9 g/dL (31-36); Mean Corpuscular Volume 81.1 fL (80-97); Mean Platelet Volume 8.5 fL (7.5-11.2); Nucleated Red Blood Cells % 0.1 %/100WBC (0.0-0.8); Platelet Count 512 10^3/uL (150-450); Red Blood Count 3.82 10^6/uL (4.06-5.63); Red Cell Distribution Width 17.9 % (12-17); White Blood Count 11.1 10^3/uL (3.6-10.2)
[2024-07-21 08:16] LABS: Calcium 7.9 mg/dL (8.6-10.3); Creatinine, Serum 1.73 mg/dL (0.67-1.17); Magnesium 2.3 mg/dL (1.9-2.7); Potassium 5.2 mmol/L (3.5-5.0); eGFR CKD-EPI 46.3 (>60)
[2024-07-21 16:01] LABS: Urine Creatinine Concentration 112.12 mg/dL (20.00-370.00)
[2024-07-21 16:41] LABS: Hepatitis C Antibody Negative (Negative)
[2024-07-22 06:41] LABS: ABS Basophils 0.1 10^3/uL (0.0-0.1); ABS Eosinophils 0.8 10^3/uL (0.0-0.5); ABS Lymphocytes 1.5 10^3/uL (1.0-4.8); ABS Monocytes 0.6 10^3/uL (0.0-1.1); ABS Neutrophils 5.8 10^3/uL (1.5-7.6); Eosinophil % 9.4 %; Hematocrit 30.3 % (38-53); Lymphocyte % 17.3 %; Mean Corpuscular Hemoglobin 26.6 pg (27-33); Mean Corpuscular Volume 80.8 fL (80-97); Mean Platelet Volume 8.5 fL (7.5-11.2); Platelet Count 558 10^3/uL (150-450); Red Blood Count 3.75 10^6/uL (4.06-5.63); Red Cell Distribution Width 18.3 % (12-17); White Blood Count 8.9 10^3/uL (3.6-10.2)
[2024-07-22 07:16] LABS: Calcium 7.9 mg/dL (8.6-10.3); Creatinine, Serum 1.93 mg/dL (0.67-1.17); Magnesium 2.1 mg/dL (1.9-2.7); Potassium 6.1 mmol/L (3.5-5.0); eGFR CKD-EPI 40.6 (>60)
[2024-07-22] MEDS: NS 0.9% 1000 ml BAG 1,000 ML IV SCH (07:55)
[2024-07-22] MEDS ORDERED: SODIUM ZIRCONIUM CYCLOSILICATE 10 GM PACKET PO SCH (09:00)
[2024-07-22] MEDS: SODIUM ZIRCONIUM CYCLOSILICATE 10 GM PACKET PO SCH (09:16)
[2024-07-22] MEDS: Albuterol (2.5 MG) 0.5 % CONC 0.5 ML NEB.SOLN INH ONE (09:38)
[2024-07-22 11:25] LABS: Urine Appearance Clear; Urine Bilirubin Negative (Negative); Urine Blood Negative (Negative); Urine Color Light-Yellow; Urine Glucose Negative (Negative); Urine Ketones Negative (Negative); Urine Nitrite Negative (Negative); Urine Protein Trace (Negative); Urine Specific Gravity 1.017 (1.002-1.030); Urine Urobilinogen Negative (Negative); Urine pH 6.5 (5.0-8.0)
[2024-07-22] MEDS: Vancomycin Trough Check NOTE FOLLOW UP ONE (15:17)
[2024-07-23 06:42] LABS: Hematocrit 30.1 % (38-53); Hemoglobin 10.1 g/dL (13.2-16.3); Mean Corpuscular Hemoglobin 27.2 pg (27-33); Mean Corpuscular Hgb Conc 33.4 g/dL (31-36); Mean Corpuscular Volume 81.4 fL (80-97); Mean Platelet Volume 8.3 fL (7.5-11.2); Platelet Count 539 10^3/uL (150-450); Red Cell Distribution Width 18.6 % (12-17); White Blood Count 8.9 10^3/uL (3.6-10.2)
[2024-07-23 07:15] LABS: Calcium 7.9 mg/dL (8.6-10.3); Creatinine, Serum 1.73 mg/dL (0.67-1.17); Magnesium 1.9 mg/dL (1.9-2.7); Potassium 5.5 mmol/L (3.5-5.0); eGFR CKD-EPI 46.3 (>60)
[2024-07-23] MEDS: SODIUM ZIRCONIUM CYCLOSILICATE 10 GM PACKET PO ONE (12:36)
[2024-07-24 05:28] LABS: Hematocrit 29.4 % (38-53); Hemoglobin 9.7 g/dL (13.2-16.3); Mean Corpuscular Hemoglobin 26.7 pg (27-33); Mean Corpuscular Volume 81.1 fL (80-97); Platelet Count 566 10^3/uL (150-450); Red Blood Count 3.63 10^6/uL (4.06-5.63); Red Cell Distribution Width 18.4 % (12-17); White Blood Count 9.2 10^3/uL (3.6-10.2)
[2024-07-24 05:55] LABS: Calcium 8.3 mg/dL (8.6-10.3); Creatinine, Serum 1.41 mg/dL (0.67-1.17); Magnesium 1.8 mg/dL (1.9-2.7); Potassium 4.9 mmol/L (3.5-5.0); eGFR CKD-EPI 59.2 (>60)
[2024-07-24] MEDS: Magnesium Sulfate 2 gm BAG 2 GM/50 ML BAG IVPB ONE (09:19)
[2024-07-25 06:00] LABS: Hematocrit 28.2 % (38-53); Hemoglobin 9.5 g/dL (13.2-16.3); Mean Corpuscular Hemoglobin 27.5 pg (27-33); Mean Corpuscular Hgb Conc 33.7 g/dL (31-36); Mean Corpuscular Volume 81.6 fL (80-97); Mean Platelet Volume 8.1 fL (7.5-11.2); Platelet Count 533 10^3/uL (150-450); Red Blood Count 3.46 10^6/uL (4.06-5.63); Red Cell Distribution Width 18.8 % (12-17); White Blood Count 9.1 10^3/uL (3.6-10.2)
[2024-07-25 08:35] LABS: Calcium 8.6 mg/dL (8.6-10.3); Creatinine, Serum 1.53 mg/dL (0.67-1.17); Magnesium 2.2 mg/dL (1.9-2.7); Potassium 5.3 mmol/L (3.5-5.0); eGFR CKD-EPI 53.7 (>60)
[2024-07-25] MEDS: SODIUM ZIRCONIUM CYCLOSILICATE 10 GM PACKET PO ONE (10:23)
[2024-07-25] MEDS: Sodium Bicarb 650 mg (ANTACID) TAB PO SCH ×2 (12:51→22:39)
[2024-07-25] MEDS ORDERED: Vancomycin Trough Check NOTE FOLLOW UP ONE (13:30)
[2024-07-25 16:07] LABS: Calcium 8.3 mg/dL (8.6-10.3); Creatinine, Serum 1.7 mg/dL (0.67-1.17); Potassium 5.1 mmol/L (3.5-5.0); Vancomycin Trough 19.6 mcg/mL; eGFR CKD-EPI 47.3 (>60)
[2024-07-25] MEDS: NS 0.9% 1000 ml BAG 1,000 ML IV SCH ×2 (18:29→22:37)
[2024-07-25] MEDS: SODIUM ZIRCONIUM CYCLOSILICATE 10 GM PACKET PO SCH (22:39)
[2024-07-26 06:36] LABS: Hematocrit 26.4 % (38-53); Hemoglobin 8.7 g/dL (13.2-16.3); Mean Corpuscular Hemoglobin 27.4 pg (27-33); Mean Corpuscular Hgb Conc 32.8 g/dL (31-36); Mean Corpuscular Volume 83.4 fL (80-97); Platelet Count 458 10^3/uL (150-450); Red Blood Count 3.17 10^6/uL (4.06-5.63); Red Cell Distribution Width 19.4 % (12-17); White Blood Count 7.8 10^3/uL (3.6-10.2)
[2024-07-26 07:12] LABS: Calcium 8.1 mg/dL (8.6-10.3); Creatinine, Serum 1.65 mg/dL (0.67-1.17); Magnesium 1.9 mg/dL (1.9-2.7)
[2024-07-26] MEDS ORDERED: SODIUM ZIRCONIUM CYCLOSILICATE 10 GM PACKET PO SCH (09:00)
[2024-07-26 09:41] LABS: Immature Retic Fraction 0.35
[2024-07-26] MEDS: Magnesium Sulfate IV 1GM/100ML 1 GM/100 ML BAG IV ONE (09:55)
[2024-07-26 10:35] LABS: Albumin 2.8 g/dL (3.2-5.2); Albumin/Globulin Ratio 0.5 (1-3); Direct Bilirubin 0.1 mg/dL (0.03-0.18); Globulin 5.4 g/dL (2-4); Indirect Bilirubin 0.3 mg/dL (0.3-1.0); Total Bilirubin 0.4 mg/dL (0.2-1.0); Total Protein 8.2 g/dL (6.4-8.9)
[2024-07-26 10:40] LABS: TSH Ultra Thyroid Stim Horm 0.91 mcIU/mL (0.34-5.60)
[2024-07-26 10:48] LABS: Ferritin 144.9 ng/mL (24-336)
[2024-07-26 10:51] LABS: Folate 10.71 ng/mL (5.90-24.80)
[2024-07-26 11:12] LABS: RBC Retic Count 3.17 10^6/ul (4.06-5.63)
[2024-07-26 11:13] LABS: Corrected Retic Count 0.8 % (0.5-2.2); Hematocrit for Retic CNT 26.4 % (38-53)
[2024-07-26] MEDS: 1/2 NS IV SCH (11:59)
[2024-07-26] MEDS: D5W IV SCH (11:59)
[2024-07-26] MEDS: SODIUM BICARB IV SCH (11:59)
[2024-07-26] MEDS ORDERED: Sulfur Hexaflouride MICROSPHR 25 MG VIAL IV PRN ×2 (17:38→20:53)
[2024-07-26 17:55] LABS: ABS Eosinophils 0.1 10^3/uL (0.0-0.5); ABS Monocytes 0.6 10^3/uL (0.0-1.1); ABS Neutrophils 4.1 10^3/uL (1.5-7.6); Eosinophil % 1.5 %; Hematocrit 24.6 % (38-53); Lymphocyte % 28.9 %; Mean Corpuscular Hemoglobin 26.7 pg (27-33); Mean Corpuscular Hgb Conc 32.5 g/dL (31-36); Mean Corpuscular Volume 82.2 fL (80-97); Mean Platelet Volume 7.5 fL (7.5-11.2); Platelet Count 458 10^3/uL (150-450); Red Blood Count 2.99 10^6/uL (4.06-5.63); Red Cell Distribution Width 19.3 % (12-17); White Blood Count 6.8 10^3/uL (3.6-10.2)
[2024-07-26 18:42] LABS: Albumin 2.7 g/dL (3.2-5.2); Albumin/Globulin Ratio 0.5 (1-3); Calcium 7.9 mg/dL (8.6-10.3); Creatinine, Serum 1.57 mg/dL (0.67-1.17); Globulin 5.3 g/dL (2-4); Magnesium 2.1 mg/dL (1.9-2.7); Potassium 4.4 mmol/L (3.5-5.0); Total Bilirubin 0.5 mg/dL (0.2-1.0); eGFR CKD-EPI 52.1 (>60)
[2024-07-26 18:46] LABS: TSH Ultra Thyroid Stim Horm 1.09 mcIU/mL (0.34-5.60)
[2024-07-26 19:22] LABS: C Reactive Protein 22.47 mg/L (<8.01)
[2024-07-26] MEDS: Lactated Ringers 1000 ml BAG 1,000 ML IV SCH (20:20)
[2024-07-26 21:05] LABS: Erythrocyte Sed Rate 100 mm/Hr (0-19)
[2024-07-26] MEDS: Vancomycin 750 MG in NS 0.9% 250 ML IVPB SCH (23:06)
[2024-07-27 04:30] LABS: ABS Lymphocytes 1.2 10^3/uL (1.0-4.8); ABS Monocytes 0.1 10^3/uL (0.0-1.1); ABS Nucleated RBC 0.01 10^3/ul; Hematocrit 24.4 % (38-53); Hemoglobin 8.3 g/dL (13.2-16.3); Mean Corpuscular Hemoglobin 27.7 pg (27-33); Mean Corpuscular Hgb Conc 33.9 g/dL (31-36); Mean Corpuscular Volume 81.8 fL (80-97); Mean Platelet Volume 7.9 fL (7.5-11.2); Nucleated Red Blood Cells % 0.1 %/100WBC (0.0-0.8); Platelet Count 403 10^3/uL (150-450); Red Blood Count 2.98 10^6/uL (4.06-5.63); Red Cell Distribution Width 18.9 % (12-17); White Blood Count 7.2 10^3/uL (3.6-10.2)
[2024-07-27 05:16] LABS: Albumin 2.6 g/dL (3.2-5.2); Albumin/Globulin Ratio 0.5 (1-3); Calcium 8.1 mg/dL (8.6-10.3); Creatinine, Serum 1.65 mg/dL (0.67-1.17); Globulin 5.3 g/dL (2-4); Potassium 5.5 mmol/L (3.5-5.0); Total Bilirubin 0.7 mg/dL (0.2-1.0); Total Protein 7.9 g/dL (6.4-8.9)
[2024-07-27] MEDS: SODIUM ZIRCONIUM CYCLOSILICATE 10 GM PACKET PO ONE (06:11)
[2024-07-27] MEDS: Lactated Ringers 1000 ml BAG 1,000 ML IV SCH ×2 (06:11→18:36)
[2024-07-27] MEDS: Enoxaparin 30 MG/0.3 ML SYR SUBCUT SCH (12:56)
[2024-07-27] MEDS: Iodixanol 320 (CONTRAST) 100 ML SDV IV ONE (22:24)
[2024-07-28 06:57] LABS: ABS Lymphocytes 1.4 10^3/uL (1.0-4.8); ABS Monocytes 1.2 10^3/uL (0.0-1.1); ABS Nucleated RBC 0.01 10^3/ul; Hematocrit 23.4 % (38-53); Hemoglobin 7.8 g/dL (13.2-16.3); Lymphocyte % 10.1 %; Mean Corpuscular Hemoglobin 27.4 pg (27-33); Mean Corpuscular Hgb Conc 33.3 g/dL (31-36); Mean Corpuscular Volume 82.4 fL (80-97); Mean Platelet Volume 7.6 fL (7.5-11.2); Nucleated Red Blood Cells % 0.1 %/100WBC (0.0-0.8); Platelet Count 369 10^3/uL (150-450); Red Blood Count 2.84 10^6/uL (4.06-5.63); Red Cell Distribution Width 19.5 % (12-17); White Blood Count 13.6 10^3/uL (3.6-10.2)
[2024-07-28 07:27] LABS: Creatinine, Serum 1.45 mg/dL (0.67-1.17); Magnesium 1.8 mg/dL (1.9-2.7); Phosphorus 2.3 mg/dL (2.5-5.0); Potassium 4.1 mmol/L (3.5-5.0); eGFR CKD-EPI 57.3 (>60)
[2024-07-28] MEDS ORDERED: SODIUM ZIRCONIUM CYCLOSILICATE 5 GM PACKET PO SCH (09:00)
[2024-07-28] MEDS: Lactated Ringers 1000 ml BAG 1,000 ML IV SCH (11:01)
[2024-07-28] MEDS: SODIUM ZIRCONIUM CYCLOSILICATE 10 GM PACKET PO SCH (11:13)
[2024-07-28] MEDS: BICTEGRAV EMTRICIT TENOFOV ALA PO SCH (13:08)
[2024-07-28] MEDS: Vancomycin Trough Check NOTE FOLLOW UP ONE (13:41)
[2024-07-28] MEDS ORDERED: Lorazepam PYXIS KEY PRN (16:13)
[2024-07-28] MEDS: LORazepam 2 mg VIAL 1 ml IV PUSH ONE (16:19)
[2024-07-28] MEDS ORDERED: Sulfur Hexaflouride MICROSPHR 25 MG VIAL IV PRN (16:35)
[2024-07-28] MEDS: Albuterol/Ipratropium NEB.SOL (2.5/0.5 MG) 3 ML NEB.SOLN INH ONE (17:16)
[2024-07-28] MEDS: Albuterol 2.5mg/3 ml (0.083%) NEB.SOLN INH ONE (17:17)
[2024-07-28] MEDS: Magnesium Sulfate 2 gm BAG 2 GM/50 ML BAG IVPB ONE (17:17)
[2024-07-28 17:45] LABS: Albumin 2.7 g/dL (3.2-5.2); Albumin/Globulin Ratio 0.5 (1-3); Calcium 8.2 mg/dL (8.6-10.3); Creatinine, Serum 1.54 mg/dL (0.67-1.17); Globulin 5.1 g/dL (2-4); Magnesium 1.7 mg/dL (1.9-2.7); Phosphorus 1.4 mg/dL (2.5-5.0); Potassium 4.2 mmol/L (3.5-5.0); Total Bilirubin 0.4 mg/dL (0.2-1.0); Total Protein 7.8 g/dL (6.4-8.9); eGFR CKD-EPI 53.3 (>60)
[2024-07-28 18:36] LABS: High Sensitivity Troponin 1 Hr 6 pg/mL (<20)
[2024-07-28 18:36] LABS: ABS Lymphocytes 1.9 10^3/uL (1.0-4.8); ABS Monocytes 0.3 10^3/uL (0.0-1.1); ABS Neutrophils 11.5 10^3/uL (1.5-7.6); ABS Nucleated RBC 0.01 10^3/ul; Hematocrit 25.4 % (38-53); Hemoglobin 8.4 g/dL (13.2-16.3); Lymphocyte % 14.1 %; Mean Corpuscular Hemoglobin 27.4 pg (27-33); Mean Corpuscular Volume 82.8 fL (80-97); Mean Platelet Volume 8.4 fL (7.5-11.2); Nucleated Red Blood Cells % 0.1 %/100WBC (0.0-0.8); Platelet Count 403 10^3/uL (150-450); Red Blood Count 3.06 10^6/uL (4.06-5.63); Red Cell Distribution Width 19.6 % (12-17); White Blood Count 13.7 10^3/uL (3.6-10.2)
[2024-07-28 18:48] LABS: Albumin 2.6 g/dL (3.2-5.2); Albumin/Globulin Ratio 0.5 (1-3); Creatinine, Serum 1.43 mg/dL (0.67-1.17); Globulin 4.9 g/dL (2-4); Total Bilirubin 0.4 mg/dL (0.2-1.0); Total Protein 7.5 g/dL (6.4-8.9); eGFR CKD-EPI 58.2 (>60)
[2024-07-28] MEDS: Albuterol 2.5mg/3 ml (0.083%) NEB.SOLN INH PRN (20:40)
[2024-07-28] MEDS: LORazepam 2 mg VIAL 1 ml ONE (20:51)
[2024-07-29] MEDS: Calcium Carb (TUMS) 500 mg CHEW TAB PO ONE (02:08)
[2024-07-29 06:46] LABS: Hemoglobin 8.4 g/dL (13.2-16.3); Mean Corpuscular Hemoglobin 27.5 pg (27-33); Mean Corpuscular Hgb Conc 33.6 g/dL (31-36); Mean Platelet Volume 7.9 fL (7.5-11.2); Platelet Count 397 10^3/uL (150-450); Red Blood Count 3.05 10^6/uL (4.06-5.63); Red Cell Distribution Width 19.4 % (12-17); White Blood Count 14.8 10^3/uL (3.6-10.2)
[2024-07-29 07:27] LABS: Albumin 2.7 g/dL (3.2-5.2); Albumin/Globulin Ratio 0.5 (1-3); Calcium 8.3 mg/dL (8.6-10.3); Creatinine, Serum 1.39 mg/dL (0.67-1.17); Globulin 5.1 g/dL (2-4); Magnesium 1.9 mg/dL (1.9-2.7); Phosphorus 2.9 mg/dL (2.5-5.0); Potassium 3.8 mmol/L (3.5-5.0); Total Bilirubin 0.5 mg/dL (0.2-1.0); Total Protein 7.8 g/dL (6.4-8.9); eGFR CKD-EPI 60.2 (>60)
[2024-07-29] MEDS: Gaviscon CHEW TAB PO PRN (13:47)
[2024-07-29] MEDS: Alteplase (CATHFLO) 2 MG VIAL IV ONE (22:41)
[2024-07-29] MEDS ORDERED: Lactated Ringers 1000 ml BAG 1,000 ML IV SCH (23:00)
[2024-07-30 06:45] LABS: Hematocrit 28.5 % (38-53); Hemoglobin 9.6 g/dL (13.2-16.3); Mean Corpuscular Hemoglobin 27.5 pg (27-33); Mean Corpuscular Hgb Conc 33.7 g/dL (31-36); Mean Corpuscular Volume 81.7 fL (80-97); Mean Platelet Volume 7.7 fL (7.5-11.2); Platelet Count 401 10^3/uL (150-450); Red Blood Count 3.49 10^6/uL (4.06-5.63); Red Cell Distribution Width 19.1 % (12-17); White Blood Count 9.1 10^3/uL (3.6-10.2)
[2024-07-30 07:13] LABS: Albumin 2.6 g/dL (3.2-5.2); Albumin/Globulin Ratio 0.5 (1-3); Calcium 8.6 mg/dL (8.6-10.3); Creatinine, Serum 1.44 mg/dL (0.67-1.17); Globulin 5.4 g/dL (2-4); Magnesium 1.8 mg/dL (1.9-2.7); Phosphorus 3.5 mg/dL (2.5-5.0); Potassium 4.2 mmol/L (3.5-5.0); Total Bilirubin 0.8 mg/dL (0.2-1.0); eGFR CKD-EPI 57.7 (>60)
[2024-07-30] MEDS: Magnesium Sulfate 2 gm BAG 2 GM/50 ML BAG IVPB ONE (09:16)
[2024-07-30] MEDS: Sodium Bicarb 650 mg (ANTACID) TAB PO SCH (09:17)
[2024-07-30] MEDS: metroNIDAZOLE IV 500 MG/100ML 500 MG/100 ML BAG IVPB SCH (12:28)
[2024-07-30 16:40] LABS: Urine Appearance Clear; Urine Bilirubin Negative (Negative); Urine Blood Negative (Negative); Urine Color Light-Yellow; Urine Glucose Negative (Negative); Urine Ketones Negative (Negative); Urine Nitrite Negative (Negative); Urine Protein Trace (Negative); Urine Specific Gravity 1.014 (1.002-1.030); Urine Urobilinogen Negative (Negative); Urine pH 6.5 (5.0-8.0)
[2024-07-31 06:19] LABS: Hematocrit 28.8 % (38-53); Hemoglobin 9.6 g/dL (13.2-16.3); Mean Corpuscular Hemoglobin 27.5 pg (27-33); Mean Corpuscular Hgb Conc 33.3 g/dL (31-36); Mean Corpuscular Volume 82.7 fL (80-97); Mean Platelet Volume 7.8 fL (7.5-11.2); Platelet Count 383 10^3/uL (150-450); Red Blood Count 3.48 10^6/uL (4.06-5.63); Red Cell Distribution Width 19.8 % (12-17); White Blood Count 9.8 10^3/uL (3.6-10.2)
[2024-07-31 06:51] LABS: Albumin 2.6 g/dL (3.2-5.2); Albumin/Globulin Ratio 0.5 (1-3); Calcium 8.3 mg/dL (8.6-10.3); Creatinine, Serum 1.2 mg/dL (0.67-1.17); Globulin 5.3 g/dL (2-4); Magnesium 1.8 mg/dL (1.9-2.7); Potassium 4.1 mmol/L (3.5-5.0); Total Bilirubin 0.6 mg/dL (0.2-1.0); Total Protein 7.9 g/dL (6.4-8.9); eGFR CKD-EPI 71.9 (>60)
[2024-07-31] MEDS: Magnesium Sulfate 2 gm BAG 2 GM/50 ML BAG IVPB ONE (09:09)
[2024-07-31] MEDS: Enoxaparin 30 MG/0.3 ML SYR SUBCUT SCH (09:13)
[2024-07-31] MEDS: Vancomycin Trough Check NOTE FOLLOW UP ONE (12:45)
[2024-07-31 13:28] VITALS: BP 111/87
[2024-08-01] MEDS ORDERED: Enoxaparin 40 MG/0.4 ML SYR SUBCUT SCH (09:00)
[2024-08-03] MEDS ORDERED: Vancomycin Trough Check NOTE FOLLOW UP ONE (09:30)
== END 2024-07-31 17:55 | disposition home or self-care (01) | DRG 710 ==
LOC: ED 08:28 → EDHOLD 08:28 → SUATTDRO 11:37 → OBSVTOIN 11:37 → ICU 11:57 → MED 07-17 01:16 → ICU 07-26 19:08 → MED 07-28 01:58
PROVIDERS: ADMIT Student in an Organized Health Care Education/Training Program; ATTEND Internal Medicine